=== PATIENT | male | born 1980 | race Caucasian/White ===

== ENCOUNTER 2022-08-12 23:48 | Inpatient (IN) | payer OTHER ==
[2022-08-13] MEDS ORDERED: TDAP (DIPHTH,PERTUSS(ACELL),TET VAC) 0.5 ML VIAL IMVAC ONE (01:04)
[2022-08-13] MEDS ORDERED: MUPIROCIN 2% OINT 22GM TUBE TOP ONE (01:04)
[2022-08-13] MEDS ORDERED: CEFAZOLIN SODIUM 1 GM/VIAL ONE (01:40)
[2022-08-13] MEDS ORDERED: MORPHINE 4 MG/ML SYR ONE ×2 (01:40→05:29)
[2022-08-13] MEDS ORDERED: DIAZEPAM 10 MG/2 ML INJ SYRINGE ONE (01:41)
[2022-08-13] MEDS ORDERED: NA CHLORIDE 0.9% 100 ML ONE (01:41)
[2022-08-13 01:49] LABS: Absolute Lymphocytes (CBC) 3.8 K/uL (0.7-4.9); Hematocrit 44.1 % (39.6-49.0); Lymphocytes % 27.9 % (15.3-44.8); MCV 97.7 fL (80-100); MPV 7.7 fL (7.6-11.3); RBC Red Blood Cell Count 4.52 M/uL (4.33-5.43)
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
[2022-08-13 02:01] LABS: Specific Gravity 1.008 (1.005-1.030); Urine Bacteria None Seen /HPF (<20); Urine Bilirubin NEGATIVE (Negative); Urine Blood Negative (Negative); Urine Clarity Clear (Clear); Urine Color Colorless (Yellow); Urine Glucose NEGATIVE (Negative); Urine Protein NEGATIVE (Negative); Urine RBC <5 /HPF (None Seen); Urine Urobilinogen Normal (Normal); Urine pH 5.5 (5.0-7.0)
[2022-08-13 02:04] LABS: Albumin 3.6 g/dL (3.4-5.0); Bilirubin Total 0.3 mg/dL (0.2-1.0); Potassium 3.7 mEq/L (3.5-5.1); Protein, Total 6.6 g/dL (6.4-8.2)
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
[2022-08-13] MEDS ORDERED: ONDANSETRON 4 MG/2 ML VIAL IV PRN (05:43)
[2022-08-13] MEDS: NA CHLORIDE 0.9% 1,000 ML IV SCH ×2 (05:53→13:10)
[2022-08-13 06:28] VITALS: BMI 25.9
[2022-08-13] MEDS: MORPHINE 4 MG/ML SYR IV PRN ×3 (09:12→20:04)
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
--- NOTE | 2022-08-13 13:33 | RAD REPORT ---
EXAM DESCRIPTION: RAD - Hip Right 2 View - 08/13/2022 2:50 am CLINICAL HISTORY: Pain COMPARISON: CT abdomen/pelvis 08/13/2022. TECHNIQUE: Right Hip 2 Views FINDINGS: Right femoral intertrochanteric acute nondisplaced fracture. No dislocation. No significant sclerotic/lytic bone lesion. Joint spaces unremarkable. Soft tissues unremarkable. Moderately-distended contrast-opacified urinary bladder appears grossly intact. IMPRESSION: Right femoral intertrochanteric acute nondisplaced fracture. Electronically signed by: Candelario Woods MD 08/13/2022 6:41 AM CDT Due to temporary technical issues with the PACS/Fluency reporting system, reports are being signed by the in house radiologist without review as a courtesy to ensure prompt reporting. The interpreting r adiologist is fully responsible for the content of the report.
--- NOTE | 2022-08-13 13:41 | RAD REPORT ---
EXAM DESCRIPTION: RAD - Pelvis - 08/13/2022 2:50 am CLINICAL HISTORY: Pain COMPARISON: CT Abdomen/Pelvis With Contrast 08/13/2022 at 1:05 AM TECHNIQUE: Pelvis 1 View FINDINGS: Right femoral intertrochanteric acute nondisplaced fracture. No dislocation. No significant sclerotic/lytic bone lesion. Joint spaces unremarkable. Soft tissues unremarkable. Moderately-distended contrast-opacified urinary bladder appears grossly intact. IMPRESSION: Right femoral intertrochanteric acute nondisplaced fracture. Electronically signed by: Candelario Woods MD 08/13/2022 6:38 AM CDT Due to temporary technical issues with the PACS/Fluency reporting system, reports are being signed by the in house radiologist without review as a courtesy to ensure prompt reporting. The interpreting r adiologist is fully responsible for the content of the report.
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
[2022-08-13] MEDS ORDERED: FENTANYL CITR 100 MCG/2 ML ONE ×2 (16:31→17:28)
[2022-08-13] MEDS ORDERED: propofoL 200 MG/20 ML VIAL IV ONE (16:31)
[2022-08-13] MEDS ORDERED: LIDOCAINE 2% MPF 5 ML VIAL ONE (16:31)
[2022-08-13] MEDS ORDERED: MIDAZOLAM HCL 2 MG/2 ML INJ ONE (16:32)
[2022-08-13] MEDS ORDERED: ONDANSETRON 4 MG/2 ML VIAL ONE (16:32)
[2022-08-13] MEDS ORDERED: CEFAZOLIN SODIUM 2 GM/VIAL ONE (16:47)
[2022-08-13] MEDS ORDERED: dexAMETHasone 10 MG/ML VIAL ONE (17:44)
[2022-08-13] MEDS: HYDROMORPHONE HCL 1 MG/ML INJ ONE ×2 (18:21→18:32)
--- NOTE | 2022-08-13 18:34 | RAD REPORT ---
EXAM DESCRIPTION: RAD - Pelvis - 08/13/2022 6:28 pm CLINICAL HISTORY: S/P RIGHT HIP-FEM RODDING COMPARISON: <Comparisons> FINDINGS: Intramedullary leela has been placed in the proximal right femur. Skin dee are noted lat erally. Mild soft tissue gas. No unexpected immediate postoperative finding.
[2022-08-13] MEDS: FENTANYL CITR 100 MCG/2 ML ONE ×2 (18:43→18:50)
[2022-08-13 19:01] VITALS: O2SAT 96
[2022-08-13] MEDS: HYDROCODONE/APAP 10/325 TAB PO PRN (21:18)
[2022-08-13] MEDS: NACHLORIDE 0.45% 1,000 ML IV SCH (21:50)
[2022-08-13] MEDS ORDERED: ALPRAZOLAM 0.25 MG TABLET PO ONE (21:54)
[2022-08-13] MEDS ORDERED: NICOTINE 21 MG/PAT TD SCH (22:00)
[2022-08-14] MEDS: MORPHINE 4 MG/ML SYR IV PRN ×3 (00:02→07:56)
[2022-08-14] MEDS: CEFAZOLIN 1 GM in NA CHLORIDE 0.9% 50 ML IVPB SCH ×2 (01:34→07:55)
[2022-08-14] MEDS: HYDROCODONE/APAP 10/325 TAB PO PRN ×2 (02:15→12:02)
[2022-08-14] MEDS: NACHLORIDE 0.45% 1,000 ML IV SCH (02:43)
--- NOTE | 2022-08-14 03:13 | OP ---
Surgeon: Benjamin La MD Integration Engineer: family and divorce legal assistant, Isabel. Preoperative Diagnosis: Right intertrochanteric hip fracture. Postoperative Diagnosis: Right intertrochanteric hip fracture. Procedure Performed: Intramedullary rodding of right intertrochanteric hip fracture. Complications: None. Disposition: To recovery room stable. Procedure In Detail: The patient was taken to the operating room and placed in supine position under general anesthesia. There was minimal blood loss noted. An incision was created over the tip of th e greater trochanter through the deep fascia and blunt dissection of the insertional musculature was performed. An awl was used to utilize to create an entry portal. Guidewire passed. Single stage re aming for the proximal portion of the nail was performed. The nail was passed and secured with a 95 mm lag screw, verified on biplane radiography. In the subchondral bone of the femoral head, 36 mm di stal interlocking screw was then placed. The patient tolerated the procedure well. A layered closur e was performed followed by application of sterile dressing. The patient should be in the recovery r oom shortly. CHAITANYA/BARBIE Voice ID: [id number] Report ID: [id number]
[2022-08-14] MEDS ORDERED: QUETIAPINE 100MG TAB PO SCH (03:39)
[2022-08-14] MEDS: ENOXAPARIN 30 MG/0.3 ML SQ SCH ×2 (06:00→07:57)
[2022-08-14 06:16] LABS: Absolute Lymphocytes (CBC) 1.3 K/uL (0.7-4.9); Hematocrit 42.3 % (39.6-49.0); Lymphocytes % 11.4 % (15.3-44.8); MCV 97.5 fL (80-100); MPV 8.3 fL (7.6-11.3); RBC Red Blood Cell Count 4.34 M/uL (4.33-5.43)
[2022-08-14 06:40] LABS: Magnesium 2.2 mg/dL (1.6-2.4); Phosphorus 3.1 mg/dL (2.5-4.9); Potassium 3.8 mEq/L (3.5-5.1); Thyroid Stimulating Hormone 0.342 uIU/mL (0.358-3.740)
--- NOTE | 2022-08-14 09:57 | P.PN ---
Date of Service: 08/14/22 Subjective Doing well with no new complaints; wanting to go down to smoke and wanting to DC to attend daughter's graduation on or Saturday Physical Examination - Vital Signs reviewed - Physical Exam General: Alert, In no apparent distress Respiratory: Clear to auscultation bilaterally, Normal air movement Cardiovascular: Regular rate/rhythm, Normal S1 S2 Gastrointestinal: Normal bowel sounds, No tenderness Musculoskeletal: No clubbing, dressing intact; Tenderness Neurological: No focal deficits Assessment and Plan - Problems (Diagnosis) (1) Femur fracture, right Current Visit: Yes Status: Acute Encounter type: initial encounter Femur location: intertrochanteric Fracture type: closed Fracture alignment: nondisplaced Qualified Code(s): S72.144A - Nondisplaced intertrochanteric fracture of right femur, initial encounter for closed fracture (2) Fracture of second toe, right, closed Current Visit: Yes Status: Acute Encounter type: initial encounter Qualified Code(s): S92.501A - Displaced unspecified fracture of right lesser toe(s), initial encounter for closed fracture (3) Tobacco abuse Current Visit: Yes Status: Chronic - Plan -non-displaced intratrochanteric right proximal femur fracture s/p [id number] Day #1 -PRN pain control. -Dr. La following -Tobacco cessation advised. Nicoderm patch provided. -Monitor and replete electrolytes per protocol. -DVT prophylaxis. -Full code Discharge Plan: Home Plan to discharge in: Greater than 2 days - Advance Directives Does patient have a Living Will: No Does patient have a Durable POA for Healthcare: No - Code Status/Comfort Care Code Status Assessed: Yes Code Status: Full Code Physician Review: Patient Assessed, Agree with Above Assessment and Plan Critical Care: No Time Spent Managing Pts Care (In Minutes): 50
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
--- NOTE | 2022-08-14 13:41 | RAD REPORT ---
EXAM DESCRIPTION: - Hip in OR Left 1 View - 08/13/2022 6:40 pm CLINICAL HISTORY: Hip Rodding COMPARISON: None available. FINDINGS: Thirty-five Images were sent to PACS, documenting needle positions during an image guided right hip internal fixation procedure. No radiologist was available for the procedure, nor will any i mage interpretation he provided. Please refer to the procedural report for additional details. Fluoroscopy time: 1.7 Minutes. IMPRESSION: Documentation of fluoroscopy utilization as above.
[2022-08-14 14:05] VITALS: BP 127/77; TEMP 98.9
--- NOTE | 2022-08-15 05:02 | EKG ---
Test Date: 2022-08-13 Test Time: 02:59:01 Board Certified Behavioral Analyst: LEDA MEASUREMENT RESULTS: Intervals: Rate: 81 KS: 136 QRSD: 94 QT: 378 QTc: 439 [place]: P: 69 KS: 136 QRS: 87 T: 73 INTERPRETIVE STATEMENTS: Normal sinus rhythm Normal ECG No previous ECG available for comparison Electronically Signed On 08-15-22 04:55:11 CDT by Joseph Delgado
== END 2022-08-14 14:34 | disposition home or self-care (01) | DRG 482 ==
LOC: ER 23:48 → ERHOLD 08-13 04:42 → 4TH 08-13 05:21
PROVIDERS: ADMIT Hospitalist; ATTEND Hospitalist
PROC: 0QS606Z Reposition Right Upper Femur with Intramedullary Internal Fixation Device, Open Approach (ICD-10-PCS; principal; 2022-08-13 17:00)
DX: S72.144A Nondisplaced intertrochanteric fracture of right femur, initial encounter for closed fracture (principal); F43.10 Post-traumatic stress disorder, unspecified; S92.501A Displaced unspecified fracture of right lesser toe(s), initial encounter for closed fracture; F17.210 Nicotine dependence, cigarettes, uncomplicated; Z79.01 Long term (current) use of anticoagulants; Z79.899 Other long term (current) drug therapy; Z28.310 Unvaccinated for COVID-19; V03.90XA Pedestrian on foot injured in collision with car, pick-up truck or van, unspecified whether traffic or nontraffic accident, initial encounter; Y93.9 Activity, unspecified; Y92.9 Unspecified place or not applicable
CPT/HCPCS: 36415; 70450; 71250; 72125; 72170; 74177; 80048; 80053; 80061; 81001; 82565; 83735; 84100; 84443; 85025; 93005; 96365; 96366; 96372; 96375; 97110; 97116; 97161; 97530; 99285; J0690; J1100; J1170; J1650; J2001; J2250; J2405; J2704; J3010; J3360; J7030; Q9967